=== PATIENT | female | born 1975 | race Hispanic/Latino ===

== ENCOUNTER 2017-11-20 19:17 | Emergency (ER) | payer OTHER ==
[~2017-11-20] VITALS: Ht 157.5 cm; Wt 59.0 kg
[2017-11-20] MEDS ORDERED: VISTARIL25 MG PO (19:36)
[2017-11-20] MEDS ORDERED: CEPHALEXIN500 MG PO (20:04)
[2017-11-20] MEDS ORDERED: TRAMADOL HCL50 MG PO (20:04)
== END 2017-11-20 20:24 | disposition home or self-care (01) ==
LOC: ED 19:17
DX: K08.89 Other specified disorders of teeth and supporting structures (principal); Z87.891 Personal history of nicotine dependence; Z88.6 Allergy status to analgesic agent; Z88.5 Allergy status to narcotic agent; Z91.040 Latex allergy status; Z91.013 Allergy to seafood
CPT/HCPCS: 99283

== ENCOUNTER 2019-03-23 12:22 | Emergency (ER) | payer OTHER ==
[~2019-03-23] VITALS: Ht 157.5 cm; Wt 59.0 kg
[~2019-03-23 12:22] MED LIST: CEPHALEXIN500 MG PO; IBUPROFEN200 MG PO; TRAMADOL HCL50 MG PO; VISTARIL25 MG PO
[2019-03-23] MEDS ORDERED: ZOFRAN4 MG PO (14:36)
[2019-03-23] MEDS ORDERED: PROMETHAZINE HC25 M1 PO (14:36)
== END 2019-03-23 14:49 | disposition home or self-care (01) ==
LOC: ED 12:22
DX: R11.10 Vomiting, unspecified (principal); R19.7 Diarrhea, unspecified; Z88.5 Allergy status to narcotic agent; Z91.040 Latex allergy status; Z91.013 Allergy to seafood
CPT/HCPCS: 80053; 81001; 83735; 85025; 96361; 96374; 99284-25; J2405; J7040